=== PATIENT | female | born 1935 | race Two or more races ===

== ENCOUNTER 2018-01-26 13:02 | Outpatient (CLI) | payer OTHER | END 2018-01-26 13:05 | disposition home or self-care (01) | LOC: RAD 501 13:02 | DX: M25.512 Pain in left shoulder (principal); M79.622 Pain in left upper arm ==

== ENCOUNTER 2018-03-02 08:54 | Outpatient (CLI) | payer OTHER | END 2018-03-02 09:03 | disposition home or self-care (01) | LOC: LAB 08:54 | DX: E83.42 Hypomagnesemia (principal); E56.1 Deficiency of vitamin K ==

== ENCOUNTER 2018-04-06 14:52 | Outpatient (CLI) | payer OTHER | END 2018-04-06 15:01 | disposition home or self-care (01) | LOC: RAD 501 14:52 | DX: M17.11 Unilateral primary osteoarthritis, right knee (principal) ==

== ENCOUNTER 2018-05-21 10:51 | Emergency (ER) | payer OTHER ==
[~2018-05-21] VITALS: Ht 147.3 cm; Wt 50.8 kg
[2018-05-21] MEDS ORDERED: BRILINTA90 MG (11:20)
[2018-05-21] MEDS ORDERED: LIPITOR40 MG (11:20)
[2018-05-21] MEDS ORDERED: TOPROL XL50 M1 (11:20)
[2018-05-21] MEDS ORDERED: SINGULAIR 10MG10 MG (11:21)
[2018-05-21] MEDS ORDERED: ASPIR-LOW81 MG (11:21)
[2018-05-21] MEDS ORDERED: ZANTAC300 MG (11:22)
[2018-05-21] MEDS ORDERED: CEREFOLIN CAPL1 EACH (11:24)
[2018-05-21] MEDS ORDERED: SYNTHROID50 MCG (11:24)
[2018-05-21] MEDS ORDERED: DORZOLAMIDE HCL10 ML (11:25)
[2018-05-21] MEDS ORDERED: ALPHAGAN P5 M2 (11:25)
[2018-05-21] MEDS ORDERED: ANTACID CALCIU215 MG (11:26)
[2018-05-21] MEDS ORDERED: TRIPLE FLEX CA1 EACH (11:26)
[2018-05-21] MEDS ORDERED: CENTRUM SILVER1 EAC2 (11:26)
[2018-05-21] MEDS ORDERED: PAPAYA ENZYME1 EACH (11:27)
[2018-05-21] MEDS ORDERED: TURMERIC COMPL1 EACH (11:27)
[2018-05-21] MEDS ORDERED: OMEGA-3 FLAXS1000 MG (11:27)
== END 2018-05-21 17:36 | disposition home or self-care (01) ==
LOC: ER 10:51
DX: M75.52 Bursitis of left shoulder (principal)

== ENCOUNTER 2018-09-11 10:20 | Outpatient (CLI) | payer OTHER ==
[~2018-09-11 10:20] MED LIST: ALPHAGAN P5 M2; ANTACID CALCIU215 MG; ASPIR-LOW81 MG; BRILINTA90 MG; CENTRUM SILVER1 EAC2; CEREFOLIN CAPL1 EACH; DORZOLAMIDE HCL10 ML; LIPITOR40 MG; OMEGA-3 FLAXS1000 MG; PAPAYA ENZYME1 EACH; SINGULAIR 10MG10 MG; SYNTHROID50 MCG; TOPROL XL50 M1; TRIPLE FLEX CA1 EACH; TURMERIC COMPL1 EACH; ZANTAC300 MG
== END 2018-09-11 10:30 | disposition home or self-care (01) ==
LOC: MRI 10:20
DX: M54.2 Cervicalgia (principal)
CPT/HCPCS: 72141

== ENCOUNTER 2018-09-15 11:16 | Outpatient (CLI) | payer OTHER | END 2018-09-15 11:22 | disposition home or self-care (01) | LOC: SONOGRAMA 11:16 | DX: M25.512 Pain in left shoulder (principal) ==

== ENCOUNTER 2019-05-07 10:24 | Outpatient (CLI) | payer OTHER | END 2019-05-07 10:28 | disposition home or self-care (01) | LOC: MRI 10:24 | DX: M25.561 Pain in right knee (principal); M79.604 Pain in right leg | CPT/HCPCS: 73718; 73721 ==

== ENCOUNTER 2019-08-16 14:12 | Outpatient (CLI) | payer OTHER | END 2019-08-16 14:19 | disposition home or self-care (01) | LOC: RAD 14:12 | DX: M25.512 Pain in left shoulder (principal); M79.622 Pain in left upper arm ==

== ENCOUNTER 2019-08-17 11:50 | Outpatient (CLI) | payer OTHER | END 2019-08-17 11:52 | disposition home or self-care (01) | LOC: RAD 11:50 | DX: M25.512 Pain in left shoulder (principal); Z96.612 Presence of left artificial shoulder joint; M81.0 Age-related osteoporosis without current pathological fracture ==